=== PATIENT | female | born 1960 | race Caucasian/White ===

== ENCOUNTER 2024-02-28 10:05 | Outpatient (CLI) | payer MEDICAID ==
[~2024-02-28] VITALS: Ht 165.1 cm; Wt 72.6 kg
[2024-02-28] MEDS: albuterol 2.5 MG/3 ML nebule NEB ONE (10:55)
[2024-02-28 10:57] VITALS: PULSE 71; RESP 16; O2SAT 93
== END 2024-02-28 23:59 | disposition home or self-care (01) ==
LOC: RT 10:05
PROVIDERS: ATTEND Internal Medicine Pulmonary Disease
DX: J44.9 Chronic obstructive pulmonary disease, unspecified (principal)
CPT/HCPCS: 94060; 94727; 94729; 94760

== ENCOUNTER 2025-07-25 06:55 | Day surgery (SDC) | payer MEDICAID ==
[2025-07-22 13:55] LABS: MEAN PLATELET VOLUME 7.8 FL (7.4-10.4); PRE OP HEMATOCRIT 38.8 % (35.0-45.0); PRE OP HEMOGLOBIN 13.1 g/dL (12.0-16.0); PRE OP PLATELET COUNT 313 X10'3 (140-440); PRE OP WHITE BLOOD COUNT 8.9 10'3 (4.8-10.8); RED CELL DISTRIBUTION WIDTH 13.6 % (11.5-14.5)
--- NOTE | 2025-07-22 13:58 | ELECTROCARDIOGRAPH REPORT ---
[facility] Test Date: 2025-07-22 Test Time: 13:56:52 Pat Name: MYRNA MURPHY Department: [facility]-PRE-OP Patient ID: [facility]-[id number] Room: Gender: F Health Physicist: greta : 1960 Requested By: KWAN JONES Order Number: [id number] Reading MD: Dr. MARCEL Avalos Measurements Intervals [place] Rate: 74 P: 75 MA: 127 QRS: 76 QRSD: 85 T: 29 QT: 395 QTc: 439 Interpretive Statements Sinus rhythm Minimal ST depression, diffuse leads Electronically Signed On 07-22-2025 18:44:[address] MARCEL Avalos Please click the below link to view image of tracing.
[2025-07-22 14:19] LABS: CREATININE 0.86 MG/DL (0.40-0.90); PRE OP ALT 24 U/L (30-65); PRE OP ANION GAP 10 (8-16); PRE OP AST 18 U/L (10-37); PRE OP BILIRUB, TOTAL 0.6 MG/DL (0.0-1.0); PRE OP GLUCOSE 108 MG/DL (70-104); PRE OP POTASSIUM 4.3 MMOL/L (3.4-5.1); PRE OP SODIUM 143 MMOL/L (135-145); TOTAL CARBON DIOXIDE 28.5 MMOL/L (24-32); eGFR 66 ML/MIN
--- NOTE | 2025-07-22 15:52 | RADIOLOGY REPORT ---
Procedure: CT CT CHEST ION Reason for study/Clinical History: SWELLING,MASS, LUMP Comparison Study: None Exam Date: 07/22/2025 02:46 PM TECHNIQUE: Multidetector CT of the chest was performed from the lung apices to the upper abdomen without the use of intravenous contract. Axial, coronal and sagittal multiplanar reformats were performed. Radiation Dose Information: CT Dose: CTDI volume is 25 mGy. Dose-length product is 250 mGy*cm The dose indicators for CT are the volume Computed Tomography (CT) Dose Index (CTDIvol) and the Dose Length Product (DLP), and are measured in units of mGy and mGy-cm, respectively. These indicators are not patient dose, but values generated from the CT scanner acquisition factors. The report includes radiation exposure data for exposures received during this examination. FINDINGS: Lower neck: Normal thyroid. Lungs: There are multifocal ground-glass airspace opacities and lung masses with the largest in the left perihilar region measuring 5 cm which appears spiculated. Findings concerning for neoplastic process. There is an additional spiculated pulmonary mass measuring 3 mm left lower lobe. Heart/Vascular Structures: Normal heart size. No pericardial effusion. Lymph Nodes: No adenopathy Pleura: No pleural effusion or significant pneumothorax. Musculoskeletal: No acute osseous abnormality. Soft tissues: Normal. Upper abdomen: Limited portions of the upper abdomen are unremarkable. IMPRESSION: Multiple pulmonary masses with the largest in the left lower lobe as described above and left perihilar region. Radiation optimization: All CT scans at this facility use at least one of these dose optimization techniques: automated exposure control mA and/or kV adjustment per patient size (includes targeted exams where dose is matched to clinical indication) or iterative reconstruction.
[~2025-07-25] VITALS: Ht 165.1 cm; Wt 81.2 kg
[2025-07-25] VITALS (9 sets, daily range): BP systolic 119–143; BP diastolic 66–91; PULSE 77–89; RESP 15–19; TEMP 98.3; O2SAT 93–99
[~2025-07-25 06:55] MED LIST: CALC-496 PO; CHOL125C7 PO; COENZYME Q10 PO; CYAN500T46 PO; DOCUMENT DATE & TIME OF BETA-BLOCKER PO ONE; FISH400C3 PO; LABE100T8 PO; LOSA50TA64 PO; RED RICE YEAST PO
[2025-07-25] MEDS ORDERED: glycopyrrolate 0.2mg/ml inj IV ONE (06:56)
[2025-07-25] MEDS ORDERED: dexamethasone 4mg/ml inj INJ ONE (06:56)
[2025-07-25] MEDS: ringers solution, lacted 1,000 ML IV SCH (07:25)
[2025-07-25] MEDS ORDERED: enalaprilat 1.25mg/ml 2ml vial IV PRN (09:30)
[2025-07-25] MEDS ORDERED: HYDROmorphone/PF 0.2 MG/ML SYRINGE IV PRN ×2 (09:30)
[2025-07-25] MEDS ORDERED: ringers solution, lacted 1,000 ML IV SCH (09:30)
[2025-07-25] MEDS ORDERED: labetalol 20mg/4ml (5mg/ml) syringe IV PRN (09:30)
[2025-07-25] MEDS ORDERED: fentaNYL/PF 50MCG/1 ML 2ML syringe IV PRN ×2 (09:30)
[2025-07-25] MEDS ORDERED: morphine 4 MG/ML inj SYRINge IV PRN (09:30)
[2025-07-25] MEDS ORDERED: ondansetron/PF 4mg/2ml inj IV PRN (09:30)
[2025-07-25] MEDS ORDERED: fentaNYL/PF 50MCG/1 ML 2ML syringe ONE (09:45)
[2025-07-25] MEDS ORDERED: midazolam 1 mg/ML 2ml injection ONE (09:47)
[2025-07-25] MEDS ORDERED: rocuronium 10mg/ml inj IV ONE (09:50)
[2025-07-25] MEDS ORDERED: propofol inj 20 ML IV ONE (09:50)
[2025-07-25] MEDS ORDERED: ondansetron/PF 4mg/2ml inj ONE (10:59)
--- NOTE | 2025-07-25 13:40 | OPERATIVE REPORT ---
DATE OF SURGERY: 07/25/2025 DICTATING PHYSICIAN: Subhash Mejia MD PROCEDURES: * Bronchoscopy with a robotic bronchoscopy system. * EBUS. * Regular bronchoscopy. * Cone beam CT scan at the bedside. PREOPERATIVE DIAGNOSES: The patient with bilateral pulmonary nodules, 2 large nodules on the left side and multiple small ones on the left side. POSTOPERATIVE DIAGNOSES: The patient with bilateral pulmonary nodules, 2 large nodules on the left side and multiple small ones on the left side. DESCRIPTION OF PROCEDURE: The patient signed the consent after indications, potential complications were explained. We already had a planning set up for the robotic bronchoscopy system. We planned 2 lesions on the left side and 1 on the right side. Once we navigated with a catheter to the left side and to the lower lobe mass, we had to spin on it with a cone beam CT scan because I was unable to get into the mass looking at the radial ultrasound, so I found out that I was a little bit on the side, so I recalibrated and got a very good signal with a mass in the middle of the needle. We got multiple samples there about 5 different areas with a transbronchial biopsy and also with a transbronchial needle. Then, we switched over to the left upper lobe mass. That one was fairly easy to navigate into. Same process we navigated with the catheter, left the catheter behind, and then confirmed that the catheter was in the right place with a radial ultrasound. We did ____ passes there with a needle and also transbronchial biopsies. Then, we navigated to the right side, but the right side became very complicated to get in. I already had really good samples, so I decided not to do that one. I switched over to the endobronchial ultrasound bronchoscope. There were multiple paratracheal lymph nodes that were aspirated. We got multiple samples. Then we did a BAL on the right upper lobe along with a bronchial wash, cleaned out the whole area, suctioned everything we could. The patient tolerated the procedure well. No complications. Subhash Mejia MD TID: [id number] RECEIPT: [id number] TITI/MARIS
== END 2025-07-25 12:17 | disposition home or self-care (01) ==
LOC: PAS 06:55
PROVIDERS: ATTEND Internal Medicine Critical Care Medicine
DX: R91.8 Other nonspecific abnormal finding of lung field (principal)
CPT/HCPCS: 31624; 31628; 31629; 31653; 36415; 71250; 80053; 82948; 85025; 87015; 87070; 87116; 87206; 93005; J1100; J2250; J2405; J2704; J2710; J3010; J3490; J7120; Z7506; Z7508; Z7512; 31622; 31625; 31626; 31627; 31654; A4618

== ENCOUNTER 2025-08-27 12:24 | Outpatient (CLI) | payer MEDICAID ==
[~2025-08-27] VITALS: Ht 162.6 cm; Wt 78.5 kg
[~2025-08-27 12:24] MED LIST changes: -DOCUMENT DATE & TIME OF BETA-BLOCKER PO ONE
[2025-08-27 12:56] LABS: ABG BASE EXCESS 1.6 mmol/L (-2.0-3.0); ABG HCO3 25.3 mmol/L (21.0-28.0); ABG OXYGEN SATURATION 96.9 % (94.0-98.0); ABG PCO2 (T) 36.7 mmHg (32.0-45.0); ABG PH (T) 7.456 (7.350-7.450); ABG PO2 (T) 85.4 mmHg (83.0-108.0); ALLEN'S TEST POSITIVE; FCOHb 0.5 % (0.5-1.5); FHHb 3.1 % (0.0-5.0); FIO2 21.0 mmHg/%; FMetHb 0.3 % (0.0-1.5); FO2Hb 96.1 % (94.0-98.0); MODE ROOM AIR; PATIENT TEMPERATURE 37.0; TOTAL HEMOGLOBIN 13.0 G/dl (12.0-16.0)
[2025-08-27] MEDS: albuterol 2.5 MG/3 ML nebule NEB ONE (13:24)
[2025-08-27 13:26] VITALS: PULSE 76; RESP 16; O2SAT 96
[2025-08-27 13:46] VITALS: PULSE 76; RESP 16
--- NOTE | 2025-08-27 15:50 | PROCEDURE NOTE - Respiratory ---
Procedure Note-Respiratory Providers to Copies To 1: LORE NAVARRO MD; Louis Brown Procedure Name: This is a complete pulmonary function study dated August 27, 2025. Hemoglobin measurement was done as part of the study. There was also a room air blood gas obtained from this patient on the same date. Spirometry measurements: There is substantial reduction in both the forced vital capacity and the FEV1. The FEV1 ratio is also reduced. All of the measured flow rates show substantial reduction. After inhaled bronchodilator was administered, the vital capacity and some of the flow rates show slight improvement. Lung volume measurements: The total lung capacity is mildly elevated. There is also elevation of the functional residual capacity and the residual volume. This documents some degree of hyperinflation with air trapping within the lungs. Lung diffusion measurement: The DLCO measurement is normal. It is noted that the KVO measurement is normal as well as the alveolar volume measurement is normal. We note that the hemoglobin measurement is in the normal range. Airway resistance measurement: The airway resistance is normal. Conclusion: This study is abnormal. There is evidence for obstructive ventilatory defect in the moderate to severe category. These findings suggest a diagnosis of smoking-related COPD. The patient shows hyperinflation with gas trapping within the lungs. These are common findings in advanced obstructive airway disease. The patient improves only very slightly with inhaled bronchodilator. The lung diffusion capacity is normal. Compared to a previous study done 18 months earlier we note that the forced vital capacity has deteriorated from 2.25 L to 2.10 L. The FEV1 has deteriorated from 1.38 L to 1.29 L. the DLCO measurement remains approximately the same over the past 18 months. An arterial blood gas was drawn from this patient while the patient was breathing ambient air. The blood pH is normal. The pCO2 measurement was normal. The room air PO2 measurement was normal. ANNABEL LEWIS MD Aug 27, 2025 15:50
== END 2025-08-27 22:59 | disposition home or self-care (01) ==
LOC: RT 12:24
PROVIDERS: ATTEND Surgery
DX: J98.4 Other disorders of lung (principal)
CPT/HCPCS: 36600; 82803; 85018; 94060; 94727; 94729; 94760

== ENCOUNTER 2025-09-26 08:00 | Inpatient (IN) | payer MEDICAID ==
[~2025-09-26] VITALS: Ht 165.1 cm; Wt 81.0 kg
[~2025-09-26 08:00] MED LIST changes: -CHOL125C7 PO; -FISH400C3 PO; -LABE100T8 PO; +[UNRECOGNIZED DRUG - CODE] PO
[2025-09-29] MEDS ORDERED: CHOL20004 PO (10:26)
[2025-09-29 10:32] LABS: MEAN PLATELET VOLUME 8.2 FL (7.4-10.4); PRE OP HEMATOCRIT 36.2 % (35.0-45.0); PRE OP HEMOGLOBIN 12.4 g/dL (12.0-16.0); PRE OP PLATELET COUNT 243 X10'3 (140-440); PRE OP WHITE BLOOD COUNT 6.6 10'3 (4.8-10.8); RED CELL DISTRIBUTION WIDTH 13.0 % (11.5-14.5)
[2025-09-29 10:35] LABS: LEUKOCYTE ESTERASE ,URINE NEGATIVE (Neg); NITRITES, URINE NEGATIVE (Neg); OCCULT BLOOD,URINE NEGATIVE (Neg)
[2025-09-29 10:40] LABS: UA COLLECTION TYPE NON-SPECIFIED
[2025-09-29 10:41] LABS: PRE OP INR 1.0 INR; PRE OP PARTIAL THROMB. TIME 24.0 SECONDS (22-32); PRE OP PROTIME 10.4 SECONDS (9.0-12.0)
--- NOTE | 2025-09-29 11:21 | RADIOLOGY REPORT ---
DI CHEST,TWO VIEWS, DI FLUORO GUIDANCE ION, DI CT SCAN FOR NEEDLE BIOPSY, DI NAVIGATIONAL BRONCHOSCOPY CLINICAL HISTORY: PREP COMPARISON: CT CT CHEST ION on DOS: 07/22/25 TECHNIQUE: Frontal and lateral view of the chest was obtained FINDINGS: Lines and Tubes: None Lungs: No focal consolidation. Pleura: No effusion. No pneumothorax. Cardiomediastinal contours: Unremarkable Bones: No acute osseous abnormality. IMPRESSION: No acute cardiopulmonary disease.
[2025-09-29 13:46] LABS: CREATININE 0.85 MG/DL (0.40-0.90); PRE OP ALT 24 U/L (30-65); PRE OP ANION GAP 7 (8-16); PRE OP AST 16 U/L (10-37); PRE OP BILIRUB, TOTAL 0.6 MG/DL (0.0-1.0); PRE OP GLUCOSE 113 MG/DL (70-104); PRE OP POTASSIUM 4.4 MMOL/L (3.4-5.1); PRE OP SODIUM 142 MMOL/L (135-145); TOTAL CARBON DIOXIDE 27.9 MMOL/L (24-32); eGFR 67 ML/MIN
[2025-10-02] MEDS ORDERED: MULT-1085 PO (11:48)
[2025-10-02] MEDS ORDERED: OMEG-166 PO (11:48)
[2025-10-03] VITALS (26 sets, daily range): BP systolic 94–162; BP diastolic 63–103; PULSE 69–111; RESP 9–19; TEMP 98.1; O2SAT 83–100
[2025-10-03] MEDS: ceFAZolin 2gm/dext,iso 50mL 50 ML IV ONE (05:30)
[2025-10-03] MEDS: DOCUMENT DATE & TIME OF BETA-BLOCKER PO ONE (06:00)
[2025-10-03] MEDS: ringers solution, lacted 1,000 ML IV SCH ×2 (09:10→11:05)
[2025-10-03] MEDS ORDERED: iohexol 300mg/ml 100ml inj. ONE (09:15)
--- NOTE | 2025-10-03 10:05 | RADIOLOGY REPORT ---
PROCEDURE: CT CT CHEST W/ IV CONTRAST 10/03/2025 09:17 AM History: LOBECTOMY COMPARISON: DI CHEST,TWO VIEWS on DOS: 09/29/25, CT CT CHEST ION on DOS: 07/22/25 TECHNIQUE: After the uneventful administration of contrast intravenously, CT imaging was performed through the chest. Coronal and sagittal reformations were performed by the technologist. Radiation Dose : CT Dose: CTDI volume is 16.2 mGy. Dose-length product is 639 mGy*cm FINDINGS: Lower neck: Normal thyroid. Lungs: Scarring in the anterior left lung base. Grossly Unchanged Multiple bilateral ground-glass and nodular opacities in both lungs. For example, left upper lobe nodule measures 2.0 cm, image 21 Left lower lobe nodule measures 1.8 cm, image 51 Right upper lobe nodule measures 1.6 cm, image 31 Heart/Vascular Structures: Cardiomegaly. Coronary artery calcifications. Vascular calcifications of the aorta. Lymph Nodes: No adenopathy Pleura: No pleural effusion or significant pneumothorax. Musculoskeletal: No acute osseous abnormality. Soft tissues: Normal. Upper abdomen: Unchanged right adrenal adenoma measures 1.5 cm. IMPRESSION: Grossly unchanged multiple bilateral ground-glass and nodular opacities in both lungs. These are suspicious for multifocal neoplasm and/or multifocal infection. Clinical correlation advised.
[2025-10-03] MEDS ORDERED: INDOCYANINE GREEN 25 MG/10 ML VIAL IV ONE (10:41)
[2025-10-03] MEDS ORDERED: BUPIVACAINE liposomal/PF 13.3 MG/ML 10mL vial IM ONE (10:41)
[2025-10-03] MEDS ORDERED: BUPIVAcaine 2.5mg/ml inj 50ml vial (contains preservative) ONE (10:41)
[2025-10-03] MEDS ORDERED: NORepinephrine 8mg/ 250ml NS 250 ML IV ONE (10:48)
[2025-10-03] MEDS ORDERED: ondansetron/PF 4mg/2ml inj IV PRN ×2 (11:05→15:00)
[2025-10-03] MEDS ORDERED: fentaNYL/PF 50MCG/1 ML 2ML syringe IV PRN ×2 (11:05)
[2025-10-03] MEDS ORDERED: hydrALAZINE 20mg/ml inj. IV PRN ×2 (11:05→23:00)
[2025-10-03] MEDS ORDERED: labetalol 20mg/4ml (5mg/ml) syringe IV PRN (11:05)
[2025-10-03] MEDS ORDERED: fentaNYL /PF 50mcg/ml 5ml ampule ONE (11:07)
[2025-10-03] MEDS ORDERED: MIDAZolam 1 MG/ML 5ML VIAL ONE (11:11)
[2025-10-03] MEDS ORDERED: dexamethasone sod phosphate 4mg/ml inj. ONE (11:41)
[2025-10-03] MEDS ORDERED: propofol inj 20 ML IV ONE (11:41)
[2025-10-03] MEDS ORDERED: rocuronium 10mg/ml inj IV ONE ×2 (11:42)
[2025-10-03] MEDS ORDERED: albumin (Human) 5% 250ml 250 ML IV ONE ×2 (13:42)
[2025-10-03] MEDS ORDERED: glycopyrrolate 0.2mg/ml inj ONE (14:38)
[2025-10-03] MEDS ORDERED: metoclopramide 5 mg/ml inj IV PRN (15:00)
[2025-10-03] MEDS ORDERED: morphine 4 MG/ML inj SYRINge IV PRN ×2 (15:00)
[2025-10-03] MEDS ORDERED: albuterol 2.5 MG/3 ML nebule NEB PRN (15:00)
[2025-10-03] MEDS: potassium Cl 20mEq in D5-NS 1,000 ML IV SCH (15:00)
--- NOTE | 2025-10-03 15:02 | OPERATIVE REPORT ---
Operative Report Providers to CC ~ Date of Procedure: Oct 03, 2025 Pre-Operative Diagnosis: LUNG MASS Post-Operative Diagnosis SAME as PRE-Op Procedure Performed ROBO zack/ROBO NODE DISSECTION/CHEST TUBE PLACEMENT Surgeon: MELANIE OSBORN Anesthesiologist: Tay Mckee Type of Anesthesia: General Findings: MULTIPLE ZACK MASSES Estimated Blood Loss: MIN Specimen Removed: ZACK/MULTIPLE NODES LORE NAVARRO MD Oct 03, 2025 15:02
[2025-10-03 15:03] LABS: ABG BASE EXCESS -1.4 mmol/L (-2.0-3.0); ABG HCO3 24.7 mmol/L (21.0-28.0); ABG OXYGEN SATURATION 93.4 % (94.0-98.0); ABG PCO2 (T) 45.1 mmHg (32.0-45.0); ABG PH (T) 7.351 (7.350-7.450); ABG PO2 (T) 67.2 mmHg (83.0-108.0); FCOHb 0.4 % (0.5-1.5); FHHb 6.6 % (0.0-5.0); FIO2 21.0 mmHg/%; FLOW 0 L/min; FMetHb 0.3 % (0.0-1.5); FO2Hb 92.7 % (94.0-98.0); MODE ROOM AIR; PATIENT TEMPERATURE 36.0; TOTAL HEMOGLOBIN 11.5 G/dl (12.0-16.0)
[2025-10-03] MEDS: morphine 4 MG/ML inj SYRINge IV PRN (15:04)
[2025-10-03] MEDS: acetaminophen 1,000mg/100ml IV 100 ML IV PRN (15:05)
[2025-10-03] MEDS: ketorolac trometh 15mg/ml vial 15 MG/ML ML ONE (15:12)
--- NOTE | 2025-10-03 15:47 | RADIOLOGY REPORT ---
CHEST RADIOGRAPH Indication: POST OP Technique: Single frontal view of the chest was obtained COMPARISON: CT CT CHEST W/ IV CONTRAST on DOS: 10/03/25, DI CHEST,TWO VIEWS on DOS: 09/29/25, CT CT CHEST ION on DOS: 07/22/25 FINDINGS: Lines and Tubes: Right central venous catheter in satisfactory position. Left chest tube in satisfactory position. Lungs: Increased interstitial prominence. This may represent pulmonary vascular congestion and/or viral pneumonia. Pleura: Subcutaneous emphysema along the left chest wall. No appreciable pneumothorax. Cardiomediastinal contours: Unremarkable Bones: Unremarkable IMPRESSION: No appreciable pneumothorax with left chest tube in situ.
[2025-10-03] MEDS ORDERED: HYDROmorphone inj. 0.5 MG/0.5 ML DISP.SYRIN IV PRN (16:05)
[2025-10-03] MEDS: HYDROcodone/acetaminophen 10/325mg tab PO PRN (16:10)
[2025-10-03] MEDS: ceFAZolin 1GM/D5W- ADD-VANTAGE 50 ML IV SCH (16:12)
[2025-10-03] MEDS: ketorolac trometh 30MG/ML vial 30 MG/ML VIAL IV SCH (19:42)
[2025-10-04] VITALS (20 sets, daily range): BP systolic 107–167; BP diastolic 63–89; PULSE 92–123; RESP 10–28; TEMP 97.2–97.9; O2SAT 92–100
[2025-10-04 05:18] LABS: MEAN PLATELET VOLUME 8.0 FL (7.4-10.4); RED CELL DISTRIBUTION WIDTH 13.1 % (11.5-14.5)
--- NOTE | 2025-10-04 05:34 | OPERATIVE REPORT ---
DATE OF SURGERY: 10/03/2025 DICTATING PHYSICIAN: Thuan Corona MD PREOPERATIVE DIAGNOSIS: Left upper lobe nonspecific lung cancer. POSTOPERATIVE DIAGNOSIS: Left upper lobe nonspecific lung cancer. PROCEDURES PERFORMED: Robotic left upper lobectomy. Robotic lymph node dissection. Chest tube placement. SURGEON: Thuan Corona MD CONTAINER REPAIRER: Vinnie. ANESTHESIA: General/Dr. Mckee. DRAINS: A #28 chest tube. INDICATIONS FOR OPERATION: A 65-year-old female with multiple lung masses, had a left upper lobe mass, which proved malignant on biopsy. Lower lobe mass was non-malignant. The patient seen at the surgery for robotic left upper lobectomy and possible wedge resection of the left lower lobe given history of a left lower lobe mass. INTRAOPERATIVE FINDINGS: The patient had multiple left upper lobe masses. A discrete left lower lobe mass could not be identified despite CT findings. The patient had multiple nodes, which were sent to Pathology for evaluation. DESCRIPTION OF PROCEDURE: The patient was placed supine on the operating table. After induction of general anesthesia and placement of an endotracheal tube, the patient was turned in the right lateral decubitus position, was prepped and draped. After a timeout was performed, the left lung was collapsed. A posterior incision was then made in the posterior axillary line approximately at the level of the fifth intercostal space and a port was introduced into the pleural cavity. The scope was then placed. Air insufflated in the left pleural cavity. Ports were then placed anteriorly. Two ports were placed posteriorly. A cryo block was then performed of 4 interspaces. The robot was brought to the field. The camera port was docked. The camera was placed and camera targeted. The additional ports were docked and instruments placed. The chest was then explored. The patient had dense adhesions at the left upper lobe, which were taken down. The left lobe was retracted cephalad. The inferior pulmonary ligament was taken down. Station 7 nodes were identified and sent to Pathology for evaluation. The lobe was then retracted anteriorly. Posterior hilar nodes were sent to Pathology Station 7 nodes identified. The lung was retracted inferiorly. nodes as well as station 5 and 6 nodes were identified and sent to Pathology for evaluation. The lung was retracted posteriorly. Dissection was performed. At the right upper lobe, pulmonary vein was identified and isolated. Attention was then turned to the fissure. The fissure was essentially complete except for a few minor attachments. the fissure. The lingular branch was identified, isolated, divided, and coagulated with NICKI vascular load. The superior pulmonary vein was then isolated and divided with a vascular load. was isolated and divided with a vascular load. The lung was then retracted inferiorly and anteriorly and additional branches were isolated and divided with a vascular load. The left upper lobe bronchus was skeletonized. A 45 black stapler was used to divide the left upper lobe bronchus. Hemostasis was found to be adequate. All foreign bodies were removed. The left upper lobe was then placed in an Endobag. was then removed. The robot was then undocked and removed from the field. The upper lobe was removed using the Endobag. An intercostal block was performed with Exparel. A #28 chest tube was then directed apically through the superior port incision. The lung was then re-expanded. well. All ports were then removed. The wounds were closed in layers. The skin was closed with a subcuticular stitch. A dressing was applied. The chest tube was attached to Pleur-evac. Dressing was applied. The patient was transferred to recovery in stable condition. Thuan Corona MD TID: [id number] RECEIPT: [id number] KB/MARITA cc: Subhash Mejia MD,
[2025-10-04 05:38] LABS: CREATININE 0.77 MG/DL (0.40-0.90); PHOSPHORUS 3.6 MG/DL (2.3-4.5); TOTAL CARBON DIOXIDE 28.6 MMOL/L (24-32); eCRCL 66 ML/MIN; eGFR 75 ML/MIN
--- NOTE | 2025-10-04 06:09 | RADIOLOGY REPORT ---
CHEST RADIOGRAPH INDICATION: POST OP TECHNIQUE: Single frontal view of the chest was obtained COMPARISON: DI CHEST,SINGLE VIEW on DOS: 10/03/25, CT CT CHEST W/ IV CONTRAST on DOS: 10/03/25, DI CHEST,TWO VIEWS on DOS: 09/29/25, CT CT CHEST ION on DOS: 07/22/25 FINDINGS: Lines and Tubes: Apically directed left chest tube and right internal jugular central venous catheter unchanged. Lungs: Clear Pleura: No effusion. No pneumothorax. Interval decrease in left lateral chest wall subcutaneous emphysema. Cardiomediastinal contours: Unremarkable Bones: Unremarkable IMPRESSION: 1. No acute cardiopulmonary disease. 2. Lines and tubes unchanged. 3. Interval decrease in left lateral chest wall subcutaneous emphysema.
--- NOTE | 2025-10-04 11:40 | PROGRESS NOTE ---
Progress Note ID Providers to CC ~ Progress Note Progress Note: minimal pain/vss/lungs-small leak/labs nogted/cxr noted a/p 1. s/p DANUTA-doing well/to surg with tele LORE NAVARRO MD Oct 04, 2025 11:40
[2025-10-05] VITALS (11 sets, daily range): BP systolic 111–142; BP diastolic 71–95; PULSE 93–165; RESP 16–25; TEMP 96.2–98.4; O2SAT 91–97
[2025-10-05 06:10] LABS: MEAN PLATELET VOLUME 8.3 FL (7.4-10.4); RED CELL DISTRIBUTION WIDTH 13.2 % (11.5-14.5)
[2025-10-05 06:25] LABS: CREATININE 0.70 MG/DL (0.40-0.90); PHOSPHORUS 2.9 MG/DL (2.3-4.5); TOTAL CARBON DIOXIDE 28.4 MMOL/L (24-32); eCRCL 73 ML/MIN; eGFR 84 ML/MIN
--- NOTE | 2025-10-05 06:55 | RADIOLOGY REPORT ---
CHEST RADIOGRAPH INDICATION: POST OP TECHNIQUE: Single frontal view of the chest was obtained COMPARISON: DI CHEST,SINGLE VIEW on DOS: 10/04/25, DI CHEST,SINGLE VIEW on DOS: 10/03/25, CT CT CHEST W/ IV CONTRAST on DOS: 10/03/25, DI CHEST,TWO VIEWS on DOS: 09/29/25, CT CT CHEST ION on DOS: 07/22/25, DI CHEST,SINGLE VIEW on DOS: 10/04/25 FINDINGS: Lines and Tubes: Apically directed left chest tube and right internal jugular central venous catheter unchanged. Lungs: Clear Pleura: No effusion. No pneumothorax. Interval decrease in left lateral chest wall subcutaneous emphysema. Cardiomediastinal contours: Unremarkable Bones: Unremarkable IMPRESSION: 1. No acute cardiopulmonary disease. 2. Lines and tubes unchanged. 3. Interval decrease in left lateral chest wall subcutaneous emphysema.
[2025-10-05] MEDS: amiodarone 150mg/dext, iso-os 100 ML IV ONE (11:41)
[2025-10-05] MEDS: amiodarone/D5 360MG/200ML BAG 200 ML IV SCH ×2 (11:50→18:17)
--- NOTE | 2025-10-05 13:40 | PROGRESS NOTE ---
Progress Note ID Providers to CC ~ Progress Note Progress Note: min pain/hr noted/lungs-no leak/labs noted a/p 1. rapid a fib post DANUTA/LORE Conte MD Oct 05, 2025 13:40
[2025-10-05] MEDS: HYDROcodone/acetaminophen 10/325mg tab PO PRN (16:14)
[2025-10-05] MEDS: cholecalciferol (vitamin D3) 1,000 unit (25mcg) tablet PO SCH (21:15)
[2025-10-05] MEDS: OMEGA-3/DHA/EPA/FISH OIL 1 EACH CAPSULE.DR PO SCH (21:15)
[2025-10-06] VITALS (12 sets, daily range): BP systolic 132–177; BP diastolic 71–104; PULSE 84–100; RESP 14–21; TEMP 96.9–97.9; O2SAT 93–98
[2025-10-06 06:44] LABS: MEAN PLATELET VOLUME 8.3 FL (7.4-10.4); RED CELL DISTRIBUTION WIDTH 12.8 % (11.5-14.5)
[2025-10-06 07:06] LABS: CREATININE 0.82 MG/DL (0.40-0.90); PHOSPHORUS 3.7 MG/DL (2.3-4.5); TOTAL CARBON DIOXIDE 30.2 MMOL/L (24-32); eCRCL 62 ML/MIN; eGFR 70 ML/MIN
[2025-10-06] MEDS: cyanocobalamin 500mcg tablet PO SCH (07:39)
[2025-10-06] MEDS: multivitamins, therapeutics tablet PO SCH (07:40)
[2025-10-06] MEDS: calcium carbonate/vitamin D3 tablet PO SCH (07:40)
--- NOTE | 2025-10-06 07:42 | RADIOLOGY REPORT ---
CHEST RADIOGRAPH INDICATION: POST OP TECHNIQUE: Single frontal view of the chest was obtained COMPARISON: DI CHEST,SINGLE VIEW on DOS: 10/05/25, DI CHEST,SINGLE VIEW on DOS: 10/04/25, DI CHEST,SINGLE VIEW on DOS: 10/03/25, CT CT CHEST W/ IV CONTRAST on DOS: 10/03/25, DI CHEST,TWO VIEWS on DOS: 09/29/25, DI CHEST,SINGLE VIEW on DOS: 10/05/25 FINDINGS: Lines and Tubes: Apically directed left chest tube and right internal jugular central venous catheter unchanged. Lungs: Clear Pleura: No effusion. No pneumothorax. Interval decrease in left lateral chest wall subcutaneous emphysema. Cardiomediastinal contours: Unremarkable Bones: Unremarkable IMPRESSION: 1. No acute cardiopulmonary disease. 2. Lines and tubes unchanged. 3. Interval decrease in left lateral chest wall subcutaneous emphysema.
--- NOTE | 2025-10-06 12:06 | PROGRESS NOTE ---
Progress Note ID Providers to CC ~ Progress Note Progress Note: min pain/vss/lungs-no leak/cxr noted a/p 1. s/p DANUTA-doing well-sr with amio/oral amio-home in am-ct removed LORE NAVARRO MD Oct 06, 2025 12:06
[2025-10-06] MEDS: albuterol 2.5 MG/3 ML nebule NEB SCH (20:51)
[2025-10-06] MEDS: magnesium hydroxide 30ml (MOM) UD suspension PO ONE (21:22)
[2025-10-07] VITALS (10 sets, daily range): BP systolic 108–148; BP diastolic 68–83; PULSE 85–98; RESP 12–20; TEMP 97.3–98.4; O2SAT 91–96
[2025-10-07 07:18] LABS: MEAN PLATELET VOLUME 8.0 FL (7.4-10.4)
[2025-10-07 07:22] LABS: RED CELL DISTRIBUTION WIDTH 13.1 % (11.5-14.5)
[2025-10-07 08:06] LABS: CREATININE 0.81 MG/DL (0.40-0.90); PHOSPHORUS 4.9 MG/DL (2.3-4.5); TOTAL CARBON DIOXIDE 31.8 MMOL/L (24-32); eCRCL 63 ML/MIN; eGFR 71 ML/MIN
--- NOTE | 2025-10-07 08:30 | RADIOLOGY REPORT ---
CHEST RADIOGRAPH INDICATION: ptx TECHNIQUE: Single frontal view of the chest was obtained COMPARISON: DI CHEST,SINGLE VIEW on DOS: 10/06/25, DI CHEST,SINGLE VIEW on DOS: 10/05/25, DI CHEST,SINGLE VIEW on DOS: 10/04/25, DI CHEST,SINGLE VIEW on DOS: 10/03/25, CT CT CHEST W/ IV CONTRAST on DOS: 10/03/25, DI CHEST,SINGLE VIEW on DOS: 10/06/25 FINDINGS: Lines and Tubes: Left chest tube and right venous catheter removed. Lungs: Clear Pleura: No effusion. No pneumothorax. Interval decrease in left lateral chest wall subcutaneous emphysema. Cardiomediastinal contours: Unremarkable Bones: Unremarkable IMPRESSION: 1. No acute cardiopulmonary disease. 2. Lines and tubes removed 3. Interval decrease in left lateral chest wall subcutaneous emphysema.
--- NOTE | 2025-10-08 12:40 | PATHOLOGY REPORT ---
[facility] [address] [place] [address] SURGICAL PATHOLOGY REPORT CaseNumber: [id number] Surgeon:Thuan Corona M.D. CLINICAL INFORMATION CLINICAL INFORMATION: Left lung neoplasm. 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 (FOUR SEPARATE FOCI) - GREATEST TUMOR DIMENSION: 2.4 CM (SEE MICRO) - HILAR VASCULAR RESECTION MARGINS ARE INVOLVED - BRONCHIAL MARGIN IS CLEAR OF INVOLVEMENT - AREA SUSPICIOUS FOR SMALL VESSEL INVOLVEMENT - BENIGN HILAR LYMPH NODE (0/1) DIAGNOSIS: B.LYMPH NODES, STATION 9, SURGICAL RESECTION - BENIGN ANTHRACOTIC LYMPH NODES (0/3) DIAGNOSIS: C.LYMPH NODES, POSTERIOR HILAR, SURGICAL RESECTION - BENIGN ANTHRACOTIC LYMPH NODES (0/6) DIAGNOSIS: D.LYMPH NODES, STATION 10, SURGICAL RESECTION - BENIGN ANTHRACOTIC LYMPH NODES (0/9) DIAGNOSIS: E.LYMPH NODES, STATION 6, SURGICAL RESECTION - BENIGN ANTHRACOTIC LYMPH NODES (0/10) DIAGNOSIS: F.LYMPH NODES, STATION 5, SURGICAL RESECTION - BENIGN ANTHRACOTIC LYMPH NODES (0/6) DIAGNOSIS: G.LYMPH NODES, STATION 11, SURGICAL RESECTION - BENIGN ANTHRACOTIC LYMPH NODES (0/12) DIAGNOSIS: H.LYMPH NODES, STATION 12, SURGICAL RESECTION - BENIGN ANTHRACOTIC LYMPH NODES (0/6) COMMENT NOTE: Please also refer to the patient's previous cytology case (), which showed bronchogenic adenocarcinoma involving the left upper lobe of the lung, supported by immunohistochemistry NOTE: Please also refer to the patient's previous cytology case (), which showed bronchogenic adenocarcinoma involving the left upper lobe of the lung, supported by immunohistochemistry NOTE: Please also refer to the patient's previous cytology case (C2), which showed bronchogenic adenocarcinoma involving the left upper lobe of the lung, supported by immunohistochemistry NOTE: Please also refer to the patient's previous cytology case (C2), which showed bronchogenic adenocarcinoma involving the left upper lobe of the lung, supported by immunohistochemistry NOTE: Please also refer to the patient's previous cytology case (C2), which showed bronchogenic adenocarcinoma involving the left upper lobe of the lung, supported by immunohistochemistry NOTE: Please also refer to the patient's previous cytology case ([id number]), which showed bronchogenic adenocarcinoma involving the left upper lobe of the lung, supported by immunohistochemistry NOTE: Please also refer to the patient's previous cytology case ([id number]), which showed bronchogenic adenocarcinoma involving the left upper lobe of the lung, supported by immunohistochemistry NOTE: Please also refer to the patient's previous cytology case ([id number]), which showed bronchogenic adenocarcinoma involving the left upper lobe of the lung, supported by immunohistochemistry MICROSCOPIC DESCRIPTION A. MASSES, LUNG, LEFT UPPER LOBE, SURGICAL LOBECTOMY MICROSCOPIC DESCRIPTION: Reviewed are 13 H&E-stain slides. The sections of the first grossly described tumor (A4-5) shows a well- differentiated adenocarcinoma (lipidic pattern), measuring up to 1.2 cm in greatest dimension. The tumor cell nuclei are moderately enlarged and mildly to moderately pleomorphic. The nuclear chromatin has a [id number] to vesi cular appearance. The nucleoli are mildly to moderately enlarged and are often multiple. The surrounding cytoplasm is present in moderate to abundant amounts and often has a columnar appearance. Mitotic activity is not significantly increased. Sections of the second grossly described tumor (A7-8) shows essentially the same histologic features, but with well to moderate differentiation as well as invasive features, measuring up to 1.5 cm. No clear features of vascular involvement are identified. The section between the 1st and 2nd tumor (A6) is free of tumor involvement. Sections of the third grossly described tumor (A10-12) also show a moderately differentiated bronchogenic adenocarcinoma with increased nuclear enlargement and pleomorphism in most areas, but without a significant increase in mitotic activity. There are areas suspicious for vascular involvement. The serosal surfaces appear to be approximated, but not penetrated by tumor. The greatest tumor dimension is 2.4 cm. The section between the 2nd and 3rd tumor (A9) is focally involved by a 0.3 cm nodule of tumor. The area of grossly described firmness (A13) is also involved by a well- differentiated area of bronchogenic adenocarcinoma measuring up to 1.5 cm. The bronchial margin (A2) is free of tumor involvement and is associated with a small benign lymph node (0/1). However, the hilar vascular resection margin (A3) is involved by 0.6 cm area of moderately differentiated bronchogenic adenocarcinoma. B. LYMPH NODES, STATION 9, SURGICAL RESECTION MICROSCOPIC DESCRIPTION: Reviewed is a single H&E-stained slide showing sections of fragments of anthracotic-type lymph node tissue, without tumor involvement (0/3). C. LYMPH NODES, POSTERIOR HILAR, SURGICAL RESECTION MICROSCOPIC DESCRIPTION: Reviewed is a single H&E-stained slide showing sections of fragments of anthracotic-type lymph node tissue, without tumor involvement (0/6). D. LYMPH NODES, STATION 10, SURGICAL RESECTION MICROSCOPIC DESCRIPTION: Reviewed is a single H&E-stained slide showing sections of fragments of anthracotic-type lymph node tissue, without tumor involvement (0/9). E. LYMPH NODES, STATION 6, SURGICAL RESECTION MICROSCOPIC DESCRIPTION: Reviewed is a single H&E-stained slide showing sections of fragments of anthracotic-type lymph node tissue, without tumor involvement (0/10). F. LYMPH NODES, STATION 5, SURGICAL RESECTION MICROSCOPIC DESCRIPTION: Reviewed is a single H&E-stained slide showing sections of fragments of anthracotic-type lymph node tissue, without tumor involvement (0/6). G. LYMPH NODES, STATION 11, SURGICAL RESECTION MICROSCOPIC DESCRIPTION: Reviewed is a single H&E-stained slide showing sections of fragments of anthracotic-type lymph node tissue, without tumor involvement (0/12). H. LYMPH NODES, STATION 12, SURGICAL RESECTION MICROSCOPIC DESCRIPTION: Reviewed is a single H&E-stained slide showing sections of fragments of anthracotic-type lymph node tissue, without tumor involvement (0/6). GROSS DESCRIPTION A. MASSES, LUNG, LEFT UPPER LOBE, SURGICAL LOBECTOMY GROSS DESCRIPTION: Received unfixed from the operating room labeled with the patient's name and number is a lung segment consistent with left upper lobe. The margin is inked blue. The specimen is examined at the time of surgery and a portion of the tissue is submitted for frozen section by Dr. South. There are sutures found marking three masses varying from 0.7-1.5 cm. The closest to the margin is within 1 cm of the margin. INTRAOPERATIVE CONSULTATION WITH FROZEN SECTION DIAGNOSIS BY Dr. South: "Adenocarcinoma."(Performed at [address] [address])Further examination following formalin fixation:Received in formalin is a 112 g left upper lobectomy specimen which measures 17 x 7.5 x 4.5 cm. Sectioning reveals a 1.7 x 1.4 x 0.8 cm firm chowdhury neoplasm present 4.5 cm from the bronchial and hilar vascular resection margins. 1 cm from the previously mentioned tumor is a 1.5 x 1.3 x 0.9 cm firm chowdhury neoplasm present 4 cm from the bronchial and hilar vascular resection margins. 4 cm from the previously mentioned tumor is a 2 x 2.5 x 1.5 cm firm chowdhury neoplasm which is present 1 cm from the bronchial and hilar vascular resection margins. Sectioning the remainder of the specimen reveals a 0.8 x 0.6 x 0.5 cm firm area present 3 cm from the first tumor.Sections are submitted as follows:A1) Frozen section remnantA2) Bronchial resection marginA3) Hilar vas cular resection marginA4-A5) First tumor (4.5 cm from margin)A6) Area between first and second tumor A7-A8) Second tumor (4 cm from margin)A9) Area between second and third tumor A10-A12) Third tumor (1 cm from margin)A13) Firm areaThe time at which the specimen was removed was not provided. The time at which the specimen was placed in formalin was not provided. (meb) B. LYMPH NODES, STATION 9, SURGICAL RESECTION GROSS DESCRIPTION: Received in a container of formalin labeled with the patient's name, number, and identified as "station 9" is a 0.5 x 0.3 x 0.3 cm piece of fat and anthracotic tissue. The specimen is entirely submitted as B1. The time at which the specimen was removed was not provided. The time at which the specimen was placed in formalin was not provided. (meb) C. LYMPH NODES, POSTERIOR HILAR, SURGICAL RESECTION GROSS DESCRIPTION: Received in a container of formalin labeled with the patient's name, number, and identified as "posterior hilar node" is a 1.5 x 1 x 0.6 cm piece of fat and anthracotic tissue. The specimen is bisected and entirely submitted as C1. The time at which the specimen was removed was not provided. The time at which the specimen was placed in formalin was not provided. (meb) D. LYMPH NODES, STATION 10, SURGICAL RESECTION GROSS DESCRIPTION: Received in a container of formalin labeled with the patient's name, number, and identified as "station 10 L" is a 1 x 1 x 0.7 cm piece of fat and anthracotic tissue. The specimen is sectioned and entirely submitted as D1.The time at which the specimen was removed was not provided. The time at which the specimen was placed in formalin was not provided. (meb) E. LYMPH NODES, STATION 6, SURGICAL RESECTION GROSS DESCRIPTION: Received in a container of formalin labeled with the patient's name, number, and identified as "station 6" is a 1.3 x 1 x 0.8 cm piece of fat and anthracotic tissue. The specimen is sectioned and entirely submitted as E1. The time at which the specimen was removed was not provided. T he time at which the specimen was placed in formalin was not provided. (meb) F. LYMPH NODES, STATION 5, SURGICAL RESECTION GROSS DESCRIPTION: Received in a container of formalin labeled with the patient's name, number, and identified as "station 5" is a 1.7 x 1 x 0.8 cm piece of fat and anthracotic tissue. The specimen is sectioned and entirely submitted as F1.The time at which the specimen was removed was not provided. The time at which the specimen was placed in formalin was not provided. (meb) G. LYMPH NODES, STATION 11, SURGICAL RESECTION GROSS DESCRIPTION: Received in a container of formalin labeled with the patient's name, number, and identified as "station 11" is a 2 x 2 x 0.5 cm aggregate of irregularly shaped pieces of fat and anthracotic tissue. The specimen is entirely submitted as G1.The time at which the specimen was removed was not provided. The time at which the specimen was placed in formalin was not provided. (meb) H. LYMPH NODES, STATION 12, SURGICAL RESECTION GROSS DESCRIPTION: Received in a container of formalin labeled with the patient's name, number, and identified as "station 12" is a 1 x 1 x 0.6 cm aggregate of irregularly shaped pieces of fat and anthracotic tissue. The specimen is entirely submitted as H1. The time at which the specimen was removed was not provided. The time at which the specimen was placed in formalin was not provided. (meb) SYNOPTIC REPORT SYNOPTIC TEXT: LUNG Specimen Procedure: Lobectomy Specimen Laterality: Left Tumor Tumor Focality: Separate tumor nodules (metastases) in same lobe Tumor Site: Upper lobe of lung Tumor Size Invasive Tumor Size: 2.4 Centimeters (cm) Histologic Type: Invasive acinar adenocarcinoma Histologic Patterns: Acinar: 80%; Lepidic: 20% Spread Through Air Spaces (ANUJA): Not identified Visceral Pleura Invasion: Not identified Treatment Effect: No known presurgical therapy Lymphatic and / or Vascular Invasion: Present - Lymphatic invasion present Margins Margin Status for Invasive Tumor: Invasive tumor present at margin Margin(s) Involved by Invasive Tumor: Vascular Margin Status for Non-Invasive Tumor: All margins negative for non-invasive tumor Regional Lymph Nodes Lymph Node(s) from Prior Procedures: No known prior lymph node sampling performed Regional Lymph Node Status: All regional lymph nodes negative for tumor Number of Lymph Nodes Examined: 53 Fragments Misty Site(s) Examined: 5: Subaortic / aortopulmonary (AP) / AP window; 6: Para-aortic (ascending aorta or phrenic); 9L: Pulmonary ligament; 10L: Hilar; 11L: Interlobar; 12L-14L: Intrapulmonary pTNM Classification (AJCC Version 9) pT Category: pT3 pN Category: pN0 CAP eCP Release Date: 07/09/2025 (5.1.0.0) Accreditation Date: 03/23/2026 (m[employer] 2024 Q3) Electronically signed by: Román Eduardo M.D. 10/08/2025 12:01:00 PM
== END 2025-10-07 15:35 | disposition home or self-care (01) | DRG 120 ==
LOC: PAS IN 10-03 08:09 → CICU 2S 10-03 15:03 → SUR 3N 10-04 14:47 → PCU 3S 10-05 11:58
PROVIDERS: ADMIT Surgery; ATTEND Surgery
PROC: 8E0W4CZ Robotic Assisted Procedure of Trunk Region, Percutaneous Endoscopic Approach (ICD-10-PCS; 2025-10-03)
PROC: 0W9B30Z Drainage of Left Pleural Cavity with Drainage Device, Percutaneous Approach (ICD-10-PCS; 2025-10-03)
PROC: BW241ZZ Computerized Tomography (CT Scan) of Chest and Abdomen using Low Osmolar Contrast (ICD-10-PCS; 2025-10-03)
PROC: 0BTG4ZZ Resection of Left Upper Lung Lobe, Percutaneous Endoscopic Approach (ICD-10-PCS; principal; 2025-10-03 11:03)
DX: C34.12 Malignant neoplasm of upper lobe, left bronchus or lung (principal); J94.8 Other specified pleural conditions; Z88.5 Allergy status to narcotic agent
CPT/HCPCS: 36415; 36600; 71045; 71046; 71260; 80053; 81003; 82803; 82948; 83735; 84100; 85018; 85025; 85610; 85730; 86885; 86900; 86901; 86920; 87081; 94640; 94668; 94760; A4615; A4618; A6213; A6258; A6402; A6449; A7000; A7048; C1758; C9250; G0378; J0131; J0282; J0666; J0690; J1100; J1885; J1938; J2250; J2270; J2704; J2710; J3010; J3480; J3490; J7040; J7120; P9045; Q9967